=== PATIENT | male | born 1940 | race Caucasian/White ===

== ENCOUNTER 2017-03-11 13:18 | Inpatient (IN) | payer MEDICARE, OTHER ==
[~2017-03-11] VITALS: Ht 175.3 cm; Wt 66.8 kg
[2017-03-11] MEDS ORDERED: SODIUM CHLORIDE FLUSH 10ML SYR IVF ONE ×2 (14:00→18:00)
[2017-03-11] MEDS ORDERED: PLEASE ENTER ALLERGIES MC SCH ×2 (14:00)
[2017-03-11 14:19] LABS: BLOOD UREA NITROGEN 37 mg/dL (7-18)
[2017-03-11 14:24] LABS: ASPARTATE AMINO TRANSFERASE 98 U/L (15-37)
[2017-03-11 14:25] LABS: IS PT STATUS REG ER OR PRE ER? YES
[2017-03-11] MEDS ORDERED: BISACODYL 10 MG SUPP PR PRN (18:00)
[2017-03-11] MEDS ORDERED: POLYETHYLENE GLYCOL 17 GM PACKET PO PRN (18:00)
[2017-03-11] MEDS ORDERED: LORazepam 2 MG/ML, 1ML IVPush PRN (18:00)
[2017-03-11] MEDS: SODIUM CHLORIDE 0.9% 1,000 ML IV SCH (18:00)
[2017-03-11] MEDS ORDERED: ONDANSETRON 2MG/ML, 2ML IVPush PRN (18:00)
[2017-03-11] MEDS ORDERED: OXYcodone IR 5MG TABLET PO PRN (18:00)
[2017-03-11] MEDS: INSULIN ASPART 100 UNITS/ML, PEN SQ-INSULIN SCH ×2 (19:23→20:08)
[2017-03-11] MEDS: METRONIDAZOLE PMX 500MG/100ML 100 ML IV SCH (19:23)
[2017-03-11] MEDS: NICOTINE 7 MG/24 HR PATCH.TD24 TD SCH (19:25)
[2017-03-11 19:34] VITALS: BP 138/82
[2017-03-11 20:00] VITALS: BP 133/71
[2017-03-11] MEDS ORDERED: CEFTRIAXONE 1,000 MG in SODIUM CHLORIDE 0.9% 50 ML IV SCH (20:00)
[2017-03-12 02:00] VITALS: BP 113/71
[2017-03-12] MEDS: METRONIDAZOLE PMX 500MG/100ML 100 ML IV SCH ×3 (03:23→19:39)
[2017-03-12 05:18] LABS: BLOOD UREA NITROGEN 34 mg/dL (7-18)
[2017-03-12 05:20] LABS: ASPARTATE AMINO TRANSFERASE 73 U/L (15-37)
[2017-03-12] MEDS: SODIUM CHLORIDE 0.9% 1,000 ML IV SCH ×2 (05:39→16:55)
[2017-03-12 06:34] VITALS: BP 118/71
[2017-03-12] MEDS: INSULIN ASPART 100 UNITS/ML, PEN SQ-INSULIN SCH ×4 (07:00→20:18)
[2017-03-12] MEDS: FOLIC ACID 1 MG TABLET PO SCH (08:30)
[2017-03-12] MEDS: THIAMINE 100MG TABLET PO SCH (08:30)
[2017-03-12] MEDS: SENNA/DOCUSATE TABLET PO SCH (08:31)
[2017-03-12] MEDS: MULTIVITAMINS/MINERALS TABLET PO SCH (08:31)
[2017-03-12 09:28] LABS: HEPATITIS C VIRUS ANTIBODY Nonreactive (Nonreactive)
[2017-03-12] MEDS ORDERED: POTASSIUM CHLORIDE 20 MEQ TAB.ER.PRT PO ONE (10:30)
[2017-03-12 11:25] LABS: TOTAL IRON BINDING CAPACITY 124 mcg/dL (250-450)
[2017-03-12] MEDS ORDERED: LIDOCAINE 1%, 20ML ONE (11:55)
[2017-03-12] MEDS ORDERED: SODIUM BICARBONATE 4.2%, 5ML ONE (11:55)
[2017-03-12 12:39] LABS: CYTOLOGY BODY FLUID RECD INTO PATHOLOGY; CYTOLOGY BODY FLUID SOURCE ASCITES FLUID
[2017-03-12 13:20] LABS: CELLS COUNTED 83; DILUTION 1; WBC SQUARES COUNTED 9
[2017-03-12 13:34] VITALS: BP 125/80
[2017-03-12] MEDS: NICOTINE 7 MG/24 HR PATCH.TD24 TD SCH (18:15)
[2017-03-12 19:22] VITALS: BP 131/69
[2017-03-12] MEDS: CEFTRIAXONE PMX 1GM/50ML 50 ML IV SCH ×2 (20:18→20:47)
[2017-03-13 01:54] VITALS: BP 135/80
[2017-03-13] MEDS: SODIUM CHLORIDE 0.9% 1,000 ML IV SCH (02:13)
[2017-03-13] MEDS: METRONIDAZOLE PMX 500MG/100ML 100 ML IV SCH ×3 (03:41→20:28)
[2017-03-13 04:44] LABS: ASPARTATE AMINO TRANSFERASE 57 U/L (15-37); BLOOD UREA NITROGEN 32 mg/dL (7-18)
[2017-03-13 06:30] VITALS: BP 137/76
[2017-03-13] MEDS: MULTIVITAMINS/MINERALS TABLET PO SCH (09:59)
[2017-03-13] MEDS: SENNA/DOCUSATE TABLET PO SCH (09:59)
[2017-03-13] MEDS: FOLIC ACID 1 MG TABLET PO SCH (09:59)
[2017-03-13] MEDS: THIAMINE 100MG TABLET PO SCH (09:59)
[2017-03-13] MEDS: INSULIN ASPART 100 UNITS/ML, PEN SQ-INSULIN SCH ×4 (10:02→20:28)
[2017-03-13] MEDS: SPIRONOLACTONE 25 MG TABLET PO SCH (12:01)
[2017-03-13] MEDS: FUROSEMIDE 40 MG TABLET PO SCH (12:01)
[2017-03-13 13:00] VITALS: BP 130/72
[2017-03-13] MEDS: NICOTINE 7 MG/24 HR PATCH.TD24 TD SCH (17:14)
[2017-03-13 19:24] VITALS: BP 127/81
[2017-03-13] MEDS: CEFTRIAXONE PMX 1GM/50ML 50 ML IV SCH (21:52)
[2017-03-14 01:43] VITALS: BP 126/78
[2017-03-14] MEDS: METRONIDAZOLE PMX 500MG/100ML 100 ML IV SCH ×3 (04:42→23:24)
[2017-03-14 06:53] VITALS: BP 124/72
[2017-03-14] MEDS: INSULIN ASPART 100 UNITS/ML, PEN SQ-INSULIN SCH ×4 (07:43→21:23)
[2017-03-14 08:46] LABS: BLOOD UREA NITROGEN 30 mg/dL (7-18)
[2017-03-14 08:52] LABS: ASPARTATE AMINO TRANSFERASE 63 U/L (15-37)
[2017-03-14] MEDS: FUROSEMIDE 40 MG TABLET PO SCH ×2 (09:00→11:23)
[2017-03-14] MEDS: SENNA/DOCUSATE TABLET PO SCH ×2 (11:23→15:08)
[2017-03-14] MEDS: FOLIC ACID 1 MG TABLET PO SCH ×2 (11:24→15:08)
[2017-03-14] MEDS: SPIRONOLACTONE 25 MG TABLET PO SCH ×2 (11:24→15:08)
[2017-03-14] MEDS: MULTIVITAMINS/MINERALS TABLET PO SCH ×2 (11:24→15:08)
[2017-03-14] MEDS: THIAMINE 100MG TABLET PO SCH ×2 (11:24→15:09)
[2017-03-14 13:10] VITALS: BP 108/64
[2017-03-14] MEDS: NICOTINE 7 MG/24 HR PATCH.TD24 TD SCH (16:26)
[2017-03-14 19:08] VITALS: BP 118/76
[2017-03-14] MEDS: CEFTRIAXONE PMX 1GM/50ML 50 ML IV SCH (21:44)
[2017-03-15 06:08] LABS: ASPARTATE AMINO TRANSFERASE 49 U/L (15-37); BLOOD UREA NITROGEN 29 mg/dL (7-18)
[2017-03-15] MEDS: INSULIN ASPART 100 UNITS/ML, PEN SQ-INSULIN SCH ×2 (07:00→11:57)
[2017-03-15] MEDS: METRONIDAZOLE PMX 500MG/100ML 100 ML IV SCH ×2 (07:08→14:40)
[2017-03-15 08:03] VITALS: BP 122/69
[2017-03-15] MEDS ORDERED: FURO40TA6 PO (08:45)
[2017-03-15] MEDS ORDERED: ASPI-621 PO (08:45)
[2017-03-15] MEDS ORDERED: SPIR25TA PO (08:45)
[2017-03-15] MEDS ORDERED: THIA100T6 PO (08:45)
[2017-03-15] MEDS: THIAMINE 100MG TABLET PO SCH (09:59)
[2017-03-15] MEDS: MULTIVITAMINS/MINERALS TABLET PO SCH (09:59)
[2017-03-15] MEDS: FOLIC ACID 1 MG TABLET PO SCH (10:00)
[2017-03-15] MEDS: SPIRONOLACTONE 25 MG TABLET PO SCH (10:00)
[2017-03-15] MEDS: SENNA/DOCUSATE TABLET PO SCH (10:00)
[2017-03-15] MEDS: FUROSEMIDE 40 MG TABLET PO SCH (10:00)
[2017-03-15 13:43] VITALS: BP 116/77
[2017-03-15] MEDS ORDERED: INSU100I18 SQ-INSULIN (15:16)
== END 2017-03-15 16:00 | disposition home or self-care (01) | DRG 432 ==
LOC: ED 16:29 → EDIP 17:08 → 3NE 17:38
PROVIDERS: ADMIT Internal Medicine; ATTEND Internal Medicine
PROC: 0W9G3ZZ Drainage of Peritoneal Cavity, Percutaneous Approach (ICD-10-PCS; principal; 2017-03-12)
DX: K70.31 Alcoholic cirrhosis of liver with ascites (principal); E43 Unspecified severe protein-calorie malnutrition; K65.2 Spontaneous bacterial peritonitis; N17.0 Acute kidney failure with tubular necrosis; D68.9 Coagulation defect, unspecified; E87.2 Acidosis; J90 Pleural effusion, not elsewhere classified; J98.11 Atelectasis; D75.89 Other specified diseases of blood and blood-forming organs; E11.65 Type 2 diabetes mellitus with hyperglycemia; F17.210 Nicotine dependence, cigarettes, uncomplicated; H91.90 Unspecified hearing loss, unspecified ear; K40.90 Unilateral inguinal hernia, without obstruction or gangrene, not specified as recurrent; K52.9 Noninfective gastroenteritis and colitis, unspecified; E80.6 Other disorders of bilirubin metabolism; F10.20 Alcohol dependence, uncomplicated; K70.11 Alcoholic hepatitis with ascites; K80.20 Calculus of gallbladder without cholecystitis without obstruction; Z79.4 Long term (current) use of insulin; Z86.73 Personal history of transient ischemic attack (TIA), and cerebral infarction without residual deficits; Z91.19 Patient's noncompliance with other medical treatment and regimen; Z71.6 Tobacco abuse counseling
CPT/HCPCS: 36415; 49083; 71010; 74176; 80053; 80061; 80074; 81001; 82042; 82140; 82247; 82248; 82607; 82746; 82945; 82962; 83036; 83540; 83550; 83605; 83690; 83880; 84157; 84484; 85025; 85610; 85730; 87040; 87046; 87070; 87075; 87086; 87116; 87205; 87206; 87899; 88112; 88305; 88341; 88342; 89051; 93005; 93306; 93880; 93970; 99285; J0696; J1815; J3490; G0461; J7030